=== PATIENT | female | born 1955 | race Caucasian/White ===

== ENCOUNTER 2024-07-25 14:22 | Emergency (ER) | payer OTHER ==
[~2024-07-25] VITALS: Ht 162.6 cm; Wt 72.7 kg
[2024-07-25] MEDS ORDERED: iohexol 350MG/ML 100ml bottle IV ONE (14:36)
[2024-07-25 14:48] LABS: BASOPHILS % (AUTO) 0.4 % (0-1); EOSINOPHILS # (AUTO) 0.1 X10'3 (0-0.9); EOSINOPHILS % (AUTO) 0.8 % (0-6); HEMATOCRIT 43.2 % (35.0-45.0); HEMOGLOBIN 14.4 g/dl (12.0-16.0); LYMPHOCYTES # (AUTO) 1.5 X10'3 (1.1-4.8); MEAN CORPUSCULAR HGB CONC 33.3 g/dL (33.0-36.5); MEAN CORPUSCULAR VOLUME 93.2 FL (78-98); MEAN PLATELET VOLUME 9.2 FL (7.4-10.4); MONOCYTES # (AUTO) 0.6 X10'3 (0-0.9); MONOCYTES % (AUTO) 7.9 % (2-12); NEUTROPHILS # (AUTO) 5.8 X10'3 (1.8-7.7); NEUTROPHILS % (AUTO) 71.9 % (42-75); PLATELET COUNT 253 X10'3 (140-440); RED BLOOD COUNT 4.64 X10'6 (4.20-5.60); RED CELL DISTRIBUTION WIDTH 13.8 % (11.5-14.5)
[2024-07-25 14:55] LABS: ALBUMIN 3.3 G/DL (3.4-5.0); ANION GAP 8 (8-16); BLOOD UREA NITROGEN 28 MG/DL (7-18); BUN/CREATININE RATIO 27.5 (10.0-20.0); CALCIUM 9.2 MG/DL (8.5-10.1); CHLORIDE 104 MMOL/L (99-107); CREATININE 1.02 MG/DL (0.40-0.90); GLUCOSE 166 MG/DL (70-104); POTASSIUM 4.1 MMOL/L (3.5-5.1); SODIUM 139 MMOL/L (135-145); eCRCL 44 ML/MIN; eGFR 54 ML/MIN
[2024-07-25 14:58] LABS: APTT 28 SECONDS (22-32); PROTHROMBIN TIME 10.3 SECONDS (9.0-12.0)
[2024-07-25 15:00] VITALS: TEMP 98.4
[2024-07-25] MEDS ORDERED: VENL150T3 PO (15:26)
[2024-07-25] MEDS ORDERED: LANTUS SUBCUT (15:26)
[2024-07-25] MEDS ORDERED: SEMA2PEN SUBCUT (15:26)
[2024-07-25] MEDS ORDERED: AMLO-140 PO (15:26)
[2024-07-25] MEDS ORDERED: EMPA25TA PO (15:26)
--- NOTE | 2024-07-25 15:47 | NUR ---
faxed facesheet to [facility] @ 15:41 to try and start transfer request
[2024-07-25] MEDS ORDERED: ATOR40TA PO (16:01)
[2024-07-25] MEDS ORDERED: ACET250T29 PO (16:01)
--- NOTE | 2024-07-25 16:02 | NUR ---
[facility] in [place] accepted pt transfer request for ed to ed, dr. chester is the accepting doc. called [facility] dispatch for als level of care/ transport, informed me they would call back with an eta KAYLA.
[2024-07-25] MEDS: niCARDipine-NS 40mg/200ml IVPB 200 ML IV SCH (16:27)
[2024-07-25 16:34] VITALS: BP 123/81; PULSE 82; RESP 18; O2SAT 90
== END 2024-07-25 16:37 | disposition short-term general hospital (02) ==
LOC: ER 14:23
DX: I61.9 Nontraumatic intracerebral hemorrhage, unspecified (principal); Z88.6 Allergy status to analgesic agent; Z88.5 Allergy status to narcotic agent; Z79.899 Other long term (current) drug therapy; Z79.4 Long term (current) use of insulin
CPT/HCPCS: 36415; 70450; 71045; 80048; 82948; 85025; 85610; 85730; 86885; 86900; 86901; 93005; 96374; 99291; J3490; J7030; Q9967